=== PATIENT | female | born 1995 | race Caucasian/White ===

== ENCOUNTER 2016-10-29 21:15 | Emergency (ER) | payer OTHER ==
--- NOTE | 2016-10-30 00:08 | DIAGNOSTIC IMAGING REPORT ---
PROCEDURE: CT CERVICAL SPINE W/O CONTRAST INDICATION: TRAUMA/INJURY TECHNIQUE: Noncontrast axial images with sagittal and coronal reformations. COMPARISON: None. FINDINGS: Mild dextroscoliosis with straightening of the cervical lordosis. Osseous structures and disc spaces are normal. No evidence of an acute process or fracture. Alignment is normal. IMPRESSION: 1. Mild dextroscoliosis with straightening of the cervical lordosis may be positional or secondary to cervical spasm. 2. Otherwise negative CT cervical spine. No evidence of fracture. 3. Findings called to the emergency department for Dr. Henry Espinoza. All CT scans at this facility use dose modulation, iterative reconstruction, and/or weight-based dosing when appropriate to reduce radiation dose to as low as reasonably achievable.
--- NOTE | 2016-10-30 00:09 | DIAGNOSTIC IMAGING REPORT ---
PROCEDURE: CT HEAD WITHOUT CONTRAST INDICATION: Syncope. Possible seizure. TECHNIQUE: Noncontrast axial images with sagittal and coronal reformations. COMPARISON: None. FINDINGS: Brain and ventricles are normal. No evidence of an acute process or hemorrhage. Sinuses and mastoids are normal. IMPRESSION: 1. Negative head CT. 2. Findings called to emergency department for Dr. Henry Espinoza (23[address] All [address] scans at this facility use dose modulation, iterative reconstruction, and/or weight-based dosing when appropriate to reduce radiation dose to as low as reasonably achievable.
--- NOTE | 2016-10-30 00:24 | ED NURSING NOTES ---
Clinical Report - Nurses [facility] [address] [place] [address] 10/29/2016 21:15 Patient: DMITRY CAMERON TRIAGE Triage time 21:20. Chief Complaint: FALL and LACERATION. --21:32 Sugey Anand R.N. 21:20 10/29/16. BP: 112/68. HR: 101. RR: 18. O2 saturation: 100%. Temp: 98.2 F. Pain level now: 08/24. --21:32 Sugey Anand R.N. Weight: 77.1 kg stated. Height/Length: 67 inches Per Patient. BMI: 26.6. --21:27 Sugey Anand R.N. Medications Tramadol HCL Oral 100 mg, q 3 hours. --21:24 Sugey Anand R.N. Ambien Oral. --21:30 Sugey Anand R.N. Zantac Oral, daily. --21:30 Sugey Anand R.N. Depo-Provera Intramuscular. --21:30 Sugey Anand R.N. Allergies Lyrica. --21:24 Sugey Anand R.N. Cymbalta. --21:25 Sugey Anand R.N. History Arrived from home. Primary physician (lu). Location of injuries: right pentecostalism. This occurred just prior to arrival. 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 PAST MEDICAL HX: Tetanus status: unknown. Last normal menstrual period unknown. Uses depo injections. SOCIAL HX: Never smoker. No alcohol use or drug use. --21:32 Sugey Anand R.N. PROBLEMS: Fibromyalgia. --21:25 Sugey Anand R.N. ADDITIONAL SURGERIES: Tonsillectomy. --21:25 Sugey Anand R.N. Interventions ID band on patient. --21:32 Sugey Anand R.N. 21:28 10/29/2016 Site #1 started prior to arrival by EMS via IV in the right antecubital space with an 18g angiocath. Saline lock flushed with 10 mL saline. --21:28 Sugey Anand R.N. PHYSICAL ASSESSMENT To room via stretcher. GENERAL / NEURO / PSYCH: Alert. Appears in no acute distress. The patient is disoriented to person, place and time. HEENT: Head: laceration present in the right temporal area. RESPIRATORY: Respirations not labored. CVS: Capillary refill less than 2 seconds. --21:33 Sugey Anand R.N. NURSING PROGRESS NOTES Two patient identifiers checked. Call light placed in reach. Side rails up x 2. Family at bedside. --21:34 Sugey Anand R.N. Patient ready for evaluation- chart flagged. --21:34 Sugey Anand R.N. 8 fr in/out catheterization. During procedure hand hygiene observed and sterile equipment and aseptic technique used. Return of yellow-colored clear urine. She tolerated procedure well. Patient ID band checked for patient name and birthdate: patient confirmed. Catheterized urine collected with return of yellow-colored clear urine; sample sent to lab for urinalysis. Specimen labeled in the presence of the patient. --22:35 Sugey Anand R.N. Patient transported to [place] by stretcher with tech. --22:58 Sugey Anand R.N. 23:14 10/29/16. BP: 115/70 (regular adult cuff) taken on the left arm, while lying. HR: 80. O2 saturation: 100% on room air. --23:17 Priya Purvis 23:18 10/29/16. BP: 123/73 (regular adult cuff) taken on the left arm, while sitting. HR: 94. O2 saturation: 100% on room air. --23:19 Priya Purvis 23:19 10/29/16. BP: 102/73 (regular adult cuff) taken on the left arm, while standing. HR: 120. O2 saturation: 100% on room air. --23:20 Priya Purvis 23:24 10/29/2016 Started bag #1 1000 mL IV Fluids IV NS (Saline); bolus of 500 mL then at 1000 mL/hr via site #1 via IV pump. Allergies verified and confirmed 5 rights. IV patency established. IV site checked: no pain, redness, or swelling. IV flushed thoroughly pre- and post-medication administration. --23:25 Sugey Anand R.N. WOUND REPAIR: Wound repair performed by ED physician. Assisted by a nurse. The wound is located on the forehead. The wound is 3 cm. Preparation: suture tray set-up with 2% lidocaine with epi; Betadine. Wound cleansed per physician with Betadine. Procedure: wound repaired with sutures. Post-procedure: she was stable, no complications, bleeding controlled, dressing applied and wound care instructions given. Estimated blood loss: 0. Total time of assist / procedure: 15 minutes. --00:25 Sugey Anand R.N. 23:55 10/29/2016 IV Fluids IV NS via IV site #1 Rate Changed: bag #1 decreased to 125 mL/hr via IV pump. IV patency established. IV site checked: no pain, redness, or swelling. IV flushed thoroughly. (500 bolus complete). --01:31 Sugey Anand R.N. 01:23 10/30/2016 IV Fluids IV NS Discontinued: bag #1 STOPPED upon discharge. Total amount infused: 750 mL. IV patency established. IV site checked: no pain, redness, or swelling. IV flushed thoroughly. --01:32 Sugey Anand R.N. DISPOSITION / DISCHARGE Departure time: 0123. Condition at departure: stable. No learning barriers present. Discharge instructions provided and reviewed with the patient and family. Work note given. Patient and family verbalized understanding. Written instructions provided in Uzbek. The patient was discharged home and accompanied by family. She left the Emergency Department ambulatory and via private vehicle. Family member driving. --01:43 Sugey Anand R.N. 01:38 10/30/16. BP: 102/55. HR: 92. RR: 18. O2 saturation: 100% on room air. Temp: deferred. Pain level now: 210. --01:43 Sugey Anand R.N. 01:23 10/30/2016 Site #1 removed upon discharge. Catheter intact. Manual pressure and bandage applied. --01:44 Sugey Anand R.N. Locked/Released at 10/30/2016 1:50 by Sugey Anand R.N.
--- NOTE | 2016-10-30 00:24 | ED NURSING NOTES ---
Clinical Report - Nurses [facility] [address] [place] [address] 10/29/2016 21:15 Patient: DMITRY CAMERON TRIAGE Triage time 21:20. Chief Complaint: FALL and LACERATION. --21:32 Sugey Anand R.N. 21:20 10/29/16. BP: 112/68. HR: 101. RR: 18. O2 saturation: 100%. Temp: 98.2 F. Pain level now: 08/24. --21:32 Sugey Anand R.N. Weight: 77.1 kg stated. Height/Length: 67 inches Per Patient. BMI: 26.6. --21:27 Sugey Anand R.N. Medications Tramadol HCL Oral 100 mg, q 3 hours. --21:24 Sugey Anand R.N. Ambien Oral. --21:30 Sugey Anand R.N. Zantac Oral, daily. --21:30 Sugey Anand R.N. Depo-Provera Intramuscular. --21:30 Sugey Anand R.N. Allergies Lyrica. --21:24 Sugey Anand R.N. Cymbalta. --21:25 Sugey Anand R.N. History Arrived from home. Primary physician (lu). Location of injuries: right baptism. This occurred just prior to arrival. 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 PAST MEDICAL HX: Tetanus status: unknown. Last normal menstrual period unknown. Uses depo injections. SOCIAL HX: Never smoker. No alcohol use or drug use. --21:32 Sugey Anand R.N. PROBLEMS: Fibromyalgia. --21:25 Sugey Anand R.N. ADDITIONAL SURGERIES: Tonsillectomy. --21:25 Sugey Anand R.N. Interventions ID band on patient. --21:32 Sugey Anand R.N. 21:28 10/29/2016 Site #1 started prior to arrival by EMS via IV in the right antecubital space with an 18g angiocath. Saline lock flushed with 10 mL saline. --21:28 Sugey Anand R.N. PHYSICAL ASSESSMENT To room via stretcher. GENERAL / NEURO / PSYCH: Alert. Appears in no acute distress. The patient is disoriented to person, place and time. HEENT: Head: laceration present in the right temporal area. RESPIRATORY: Respirations not labored. CVS: Capillary refill less than 2 seconds. --21:33 Sugey Anand R.N. NURSING PROGRESS NOTES Two patient identifiers checked. Call light placed in reach. Side rails up x 2. Family at bedside. --21:34 Sugey Anand R.N. Patient ready for evaluation- chart flagged. --21:34 Sugey Anand R.N. 8 fr in/out catheterization. During procedure hand hygiene observed and sterile equipment and aseptic technique used. Return of yellow-colored clear urine. She tolerated procedure well. Patient ID band checked for patient name and birthdate: patient confirmed. Catheterized urine collected with return of yellow-colored clear urine; sample sent to lab for urinalysis. Specimen labeled in the presence of the patient. --22:35 Sugey Anand R.N. Patient transported to [place] by stretcher with tech. --22:58 Sugey Anand R.N. 23:14 10/29/16. BP: 115/70 (regular adult cuff) taken on the left arm, while lying. HR: 80. O2 saturation: 100% on room air. --23:17 Priya Purvis 23:18 10/29/16. BP: 123/73 (regular adult cuff) taken on the left arm, while sitting. HR: 94. O2 saturation: 100% on room air. --23:19 Priya Purvis 23:19 10/29/16. BP: 102/73 (regular adult cuff) taken on the left arm, while standing. HR: 120. O2 saturation: 100% on room air. --23:20 Priya Purvis 23:24 10/29/2016 Started bag #1 1000 mL IV Fluids IV NS (Saline); bolus of 500 mL then at 1000 mL/hr via site #1 via IV pump. Allergies verified and confirmed 5 rights. IV patency established. IV site checked: no pain, redness, or swelling. IV flushed thoroughly pre- and post-medication administration. --23:25 Sugey Anand R.N. WOUND REPAIR: Wound repair performed by ED physician. Assisted by a nurse. The wound is located on the forehead. The wound is 3 cm. Preparation: suture tray set-up with 2% lidocaine with epi; Betadine. Wound cleansed per physician with Betadine. Procedure: wound repaired with sutures. Post-procedure: she was stable, no complications, bleeding controlled, dressing applied and wound care instructions given. Estimated blood loss: 0. Total time of assist / procedure: 15 minutes. --00:25 Sugey Anand R.N. 23:55 10/29/2016 IV Fluids IV NS via IV site #1 Rate Changed: bag #1 decreased to 125 mL/hr via IV pump. IV patency established. IV site checked: no pain, redness, or swelling. IV flushed thoroughly. (500 bolus complete). --01:31 Sugey Anand R.N. 01:23 10/30/2016 IV Fluids IV NS Discontinued: bag #1 STOPPED upon discharge. Total amount infused: 750 mL. IV patency established. IV site checked: no pain, redness, or swelling. IV flushed thoroughly. --01:32 Sugey Anand R.N. DISPOSITION / DISCHARGE Departure time: 0123. Condition at departure: stable. No learning barriers present. Discharge instructions provided and reviewed with the patient and family. Work note given. Patient and family verbalized understanding. Written instructions provided in Dominican. The patient was discharged home and accompanied by family. She left the Emergency Department ambulatory and via private vehicle. Family member driving. --01:43 Sugey Anand R.N. 01:38 10/30/16. BP: 102/55. HR: 92. RR: 18. O2 saturation: 100% on room air. Temp: deferred. Pain level now: 210. --01:43 Sugey Anand R.N. 01:23 10/30/2016 Site #1 removed upon discharge. Catheter intact. Manual pressure and bandage applied. --01:44 Sugey Anand R.N. Locked/Released at 10/30/2016 1:50 by Sugey Anand R.N.
--- NOTE | 2016-10-30 00:24 | ED CLINICAL REPORT ---
Clinical Report - Physicians/Mid Levels [facility] [address] [place] [place] [address] 10/29/2016 21:15 Patient: DMITRY CAMERON Time Seen: 21:44. Arrived- By private vehicle. Historian- patient. HISTORY OF PRESENT ILLNESS Is no longer unconscious. She has recovered. Chief Complaint: SINGLE SYNCOPAL EPISODE. This occurred today. It was abrupt in onset. Event was not witnessed. The patient lost consciousness and collapsed. No incontinence. No preceding symptoms of light-headedness, nausea, dim vision, chest pain or warmth. No preceding symptoms of abdominal pain. Had a single episode. The episode was brief. Location of injuries- face. Currently she feels normal. (she says that she used more of her tramadol than she is supposed to today). REVIEW OF SYSTEMS No chills, fever, sweats, calf pain or chest pain. No cough, difficulty breathing, pedal edema, palpitations or abdominal pain. No constipation, diarrhea, nausea, vomiting or urinary problems. All systems otherwise negative, except as recorded above. SOCIAL HISTORY Never smoker. No alcohol use or drug use. FAMILY HISTORY Denies family medical history. ADDITIONAL NOTES The nursing notes have been reviewed. PHYSICAL EXAM Vital Signs: 10/29/2016 21:20 BP: 112/68. HR: 101. RR: 18. O2 saturation: 100%. Temp: 98.2 F. Pain level now: 08/24. Have been reviewed. Appearance: Alert. No acute distress. Eyes: Pupils equal, round and reactive to light. No nystagmus. ENT: Normal ENT inspection. Dry mucous membranes present. Neck: Normal inspection. Neck supple. No meningeal signs or carotid bruit. CVS: Normal heart rate and rhythm. Heart sounds normal. Respiratory: No respiratory distress. Breath sounds normal. Abdomen: Soft and nontender. No organomegaly. Back: Normal inspection. Skin: Skin warm and dry. Normal skin color. Normal skin turgor. Extremities: Extremities exhibit normal ROM. No calf tenderness. No lower extremity edema. Neuro: Alert. Oriented X 3. Speech normal. Cranial nerves normal (as tested). No cerebellar findings. No motor deficit. No sensory deficit. LABS, X-RAYS, AND EKG CT C-Spine: No acute disease. CT Head: No acute changes. The study was interpreted by the radiologist and contemporaneously by me. Laboratory Tests: UA-Culture if indicated: (LUZ ELENA: 10/29/2016 22:27) ( [facility] 10/29/2016 22:48) Final results Test Result Flag Units (Reference) URINE COLOR YELLOW URINE APPEARANCE CLEAR URINE GLUCOSE NEGATIVE (NEGATIVE) URINE BILIRUBIN NEGATIVE (NEGATIVE) URINE KETONE NEGATIVE (NEGATIVE) URINE SPECIFIC GRAVITY >= 1.030 (1.010-1.030) URINE PH 6.0 (5.0-8.0) URINE PROTEIN TRACE (NEGATIVE) URINE UROBILINOGEN 0.2 EU/dL (0.2-1.0) URINE NITRITE NEGATIVE (NEGATIVE) URINE BLOOD NEGATIVE (NEGATIVE) URINE LEUK ESTERASE NEGATIVE (NEGATIVE) URINE RBC 0-1 rbc/hpf (0-1) URINE WBC 0-1 wbc/hpf (0-1) URINE EPITHELIAL CELLS 0-1 EPI/hpf (0-5) URINE BACTERIA TRACE (<1+) (NONE SEEN) URINE COMMENT CULT NOT INDICATED URINE CULTURES ARE SET-UP BASED ON THE FOLLOWING CRITERIA:POSITIVE NITRITEPOSITIVE LEUKOCYTE ESTERASEGREATER THAN 10 WHITE BLOOD CELLSMODERATE (2+) OR GREATER BACTERIA Urine: (LUZ ELENA: 10/29/2016 22:27) ( [facility] [place] 10/29/2016 22:42) Final results Test Result Flag Units (Reference) URINE NEGATIVE CBC w Diff: (LUZ ELENA: 10/29/2016 21:25) ( [facility] [place] 10/29/2016 22:05) Final results Test Result Flag Units (Reference) WHITE BLOOD COUNT 6.7 K/uL (4.5-11.5) RED BLOOD COUNT 4.27 M/uL (4.00-5.20) HEMOGLOBIN 12.5 gm/dL (12.0-16.0) HEMATOCRIT 37.9 % (36.0-46.0) MEAN CELL VOLUME 89 fL (80-100) MEAN CORPUSCULAR HGB 29 pg (26-34) MEAN CORPUSCULAR HGB CONC 33 g/dL (31-37) RED CELL DISTRIBUTION WIDTH 13.7 % (11.6-14.8) PLATELET COUNT 286 K/uL (150-400) NEUTROPHIL % 43.7 L % (50-75) LYMPH % 43.4 H % (25-40) MONO % 8.4 % (3-14) EOSINOPHIL % 3.6 % (0-4) BASOPHIL % 0.9 % (0-2) Urine Drug Screen: (LUZ ELENA: 10/29/2016 22:27) ( [facility] [place] 10/29/2016 22:58) Final results Test Result Flag Units (Reference) AMPHETAMINE/METHAMPHETAMINE NEGATIVE (NEGATIVE) BARBITURATE NEGATIVE (NEGATIVE) BENZODIAZEPINE NEGATIVE (NEGATIVE) CANNABINOID NEGATIVE (NEGATIVE) COCAINE NEGATIVE (NEGATIVE) ECSTASY NEGATIVE (NEGATIVE) METHADONE NEGATIVE (NEGATIVE) OPIATE POSITIVE H (NEGATIVE) The urine drug screen is a qualitative screening test fordrug overdose and abuse. All screen results should beconsidered as presumptive.Drugs screened for are as follows:BenzodiazepinesCocaineAmphetamines/MetamphetaminesTHC (Tetrahydrocannabinol)OpiatesBarbituratesEcstasyMethadonePositive results are unconfirmed. For confirmation, notifythe lab for the specimen to be sent to the reference lab.All confirmations must be performed by a differentmethodology.The ingestion of natural herbal and plant productscontaining Ephedra/Ephedra metabolites can produce in urineone or more substances capable of cross reacting withamphetamine/methamphetamine immunoassays. These testsprovide a preliminary result only. A more specificalternative chemical method must be used to obtain aconfirmed analytical result. Magnesium: (LUZ ELENA: 10/29/2016 21:25) ( [facility] [place] 10/29/2016 22:21) Final results Test Result Flag Units (Reference) MAGNESIUM 2.2 mg/dL (1.8-2.4) CMP: (LUZ ELENA: 10/29/2016 21:25) ( MsgRcvd 10/29/2016 22:14) Final results Test Result Flag Units (Reference) GLUCOSE 105 mg/dL (70-110) BUN 7 mg/dL (7-18) CREATININE 1.1 mg/dL (0.6-1.3) Estimated GFR >60 mL/min Estimated GFR- >60 mL/min Note: Persistent reduction over 3 months in eGFR<60 mL/min/1.73 m2 defines CKD. Patients with eGFR values>=60 mL/min/1.73 m2 may also have CKD if evidence ofpersistent proteinuria. Additional information may be foundat www.kidney.org. SODIUM 142 mmol/L (136-145) POTASSIUM 3.6 mmol/L (3.5-5.1) CHLORIDE 108 H mmol/L (98-107) CARBON DIOXIDE 21 mmol/L (21-32) CALCIUM 8.9 mg/dL (8.5-10.1) TOTAL PROTEIN 7.3 g/dL (6.4-8.2) ALBUMIN 3.7 g/dL (3.3-5.0) BILIRUBIN, TOTAL 0.2 mg/dL (0.0-1.0) ALKALINE PHOSPHATASE 71 U/L (46-116) AST (SGOT) 18 U/L (15-37) ALT (SGPT) 21 U/L (12-78) LIPASE 70 L U/L (73-393) AMYLASE 62 U/L (25-115) . PROGRESS AND PROCEDURES Laceration Repair: Location: forehead. Time-out completed immediately before the procedure. Length: 3 cm. Complexity: simple (local anesthesia used and sutured). Wound depth/shape- linear. Anesthesia provided using 2% lidocaine with epi. Prepped with Betadine. Wound explored, cleansed and examined to the base in bloodless field. Closure of skin: 5-0 Prolene (7 sutures). Post-procedure: she is stable and there are no complications. Bleeding is controlled. Dressing applied. Tetanus immunization up-to-date. Course of Care: Patient is stable. Patient/family counseled. Old medical records ordered. Disposition: Discharged. Condition: stable. CLINICAL IMPRESSION Syncope(due to overuse of tramadol and postural hypotension). Hypotension. Minor head injury. Deep laceration to right eyebrow. INSTRUCTIONS No driving or operating machinery while taking medication. Drink plenty of fluids. (take your medications only as prescribed as discussed. Do not take any more Tramadol or Ambien for the next 24 hours.). Warnings: Further evaluation is necessary. GENERAL WARNINGS: Return or contact your physician immediately if your condition worsens or changes unexpectedly, if not improving as expected, or if other problems arise. Your Current Medications: STOP TAKING THE FOLLOWING MEDICATIONS: Ambien Oral. Tramadol HCL Oral : 100 mg q 3 hours. CONTINUE TAKING THE FOLLOWING MEDICATIONS: Depo-Provera Intramuscular. Zantac Oral : daily. Follow-up: Follow up with your doctor in five days for suture removal. Call for an appointment. Understanding of the discharge instructions verbalized by patient and parent. (Electronically signed by Henry Espinoza MD 11/02/2016 8:11)
--- NOTE | 2016-10-30 00:24 | ED ORDER SUMMARY ---
..... Patient: DMITRY CAMERON OrderSheet [facility] VisitID: [id number] [place] [address] 21y, F Registration Date/Time: 10/29/2016 ORDER SHEET Weight: 77.1 kg (stated) Allergies: Lyrica, Cymbalta GENERAL ORDERS: CBC w Diff Urgent (21:55 10/29/2016 Michael HERNANDEZ) (Ack 22:00 LMuller) (22:01 LMuller) CMP Urgent (21:55 10/29/2016 Michael HERNANDEZ) (Ack 22:00 LMuller) (22:01 LMuller) UA-Culture if indicated Urgent (21:10/29/2016 Michael HERNANDEZ) (Ack 22:00 LMuller) (22:35 CBradburn R.N.) Amylase Urgent (21:10/29/2016 Michael HERNANDEZ) (Ack 22:00 LMuller) (22:01 LMuller) Lipase Urgent (21:55 10/29/2016 Michael HERNANDEZ) (Ack 22:00 LMuller) (22:01 LMuller) Magnesium Urgent (22:02 10/29/2016 Michael HERNANDEZ) (Ack 22:03 LMuller) (22:16 CBradburn R.N.) Urine Urgent (22:02 10/29/2016 Michael HERNANDEZ) (Ack 22:03 LMuller) (22:35 CBradburn R.N.) Urine Drug Screen Urgent (22:02 10/29/2016 Michael HERNANDEZ) (Ack 22:03 LMuller) (22:35 CBradburn R.N.) Seizure Precautions (22:02 10/29/2016 Michael HERNANDEZ) (22:14 CBradburn R.N.) CT Head wo Cont Urgent (22:36 10/29/2016 Michael HERNANDEZ) (Ack 22:40 LMuller) (22:58 CBradburn R.N.) CT Cervical Spine wo Cont Urgent (22:36 10/29/2016 Michael HERNANDEZ) (Ack 22:40 LMuller) (22:58 CBradburn R.N.) Vitals - Orthostatic (22:38 10/29/2016 Michael HERNANDEZ) (Ack 23:16 Nancy R.N.) (23:23 Nancy R.N.) MEDICATION ORDERS: IV FLUIDS: IV Saline Lock (22:02 10/29/2016 Michael HERNANDEZ) (Ack 22:14 Nancy R.N.) IV NS : initial bolus 500 mL (1000 mL/hr), then 125 mL/hr for 4h (NOW); Urgent (22:35 10/29/2016 Michael HERNANDEZ) (Ack 22:39 Nancy R.N.) (23:25 Nancy R.N.) ORDER SHEET NOTES: [Electronically signed by Sugey Anand R.N. (01:50 10/30/2016)] [Electronically signed by Henry Espinoza MD (08:11 11/02/2016)] [Electronically locked/signed by Sugey Anand R.N. (01:50 10/30/2016)]
--- NOTE | 2016-10-30 00:24 | ED ORDER SUMMARY ---
..... Patient: DMITRY CAMERON OrderSheet [facility] VisitID: [id number] [place] [address] 21y, F Registration Date/Time: 10/29/2016 ORDER SHEET Weight: 77.1 kg (stated) Allergies: Lyrica, Cymbalta GENERAL ORDERS: CBC w Diff Urgent (21:55 10/29/2016 Michael HERNANDEZ) (Ack 22:00 LMuller) (22:01 LMuller) CMP Urgent (21:55 10/29/2016 Michael HERNANDEZ) (Ack 22:00 LMuller) (22:01 LMuller) UA-Culture if indicated Urgent (21:10/29/2016 Michael HERNANDEZ) (Ack 22:00 LMuller) (22:35 CBradburn R.N.) Amylase Urgent (21:10/29/2016 Michael HERNANDEZ) (Ack 22:00 LMuller) (22:01 LMuller) Lipase Urgent (21:55 10/29/2016 Michael HERNANDEZ) (Ack 22:00 LMuller) (22:01 LMuller) Magnesium Urgent (22:02 10/29/2016 Michael HERNANDEZ) (Ack 22:03 LMuller) (22:16 CBradburn R.N.) Urine Urgent (22:02 10/29/2016 Michael HERNANDEZ) (Ack 22:03 LMuller) (22:35 CBradburn R.N.) Urine Drug Screen Urgent (22:02 10/29/2016 Michael HERNANDEZ) (Ack 22:03 LMuller) (22:35 CBradburn R.N.) Seizure Precautions (22:02 10/29/2016 Michael HERNANDEZ) (22:14 CBradburn R.N.) CT Head wo Cont Urgent (22:36 10/29/2016 Michael HERNANDEZ) (Ack 22:40 LMuller) (22:58 CBradburn R.N.) CT Cervical Spine wo Cont Urgent (22:36 10/29/2016 Michael HERNANDEZ) (Ack 22:40 LMuller) (22:58 CBradburn R.N.) Vitals - Orthostatic (22:38 10/29/2016 Michael HERNANDEZ) (Ack 23:16 Nancy R.N.) (23:23 Nancy R.N.) MEDICATION ORDERS: IV FLUIDS: IV Saline Lock (22:02 10/29/2016 Michael HERNANDEZ) (Ack 22:14 Nancy R.N.) IV NS : initial bolus 500 mL (1000 mL/hr), then 125 mL/hr for 4h (NOW); Urgent (22:35 10/29/2016 Michael HERNANDEZ) (Ack 22:39 Nancy R.N.) (23:25 Nancy R.N.) ORDER SHEET NOTES: [Electronically signed by Sugey Anand R.N. (01:50 10/30/2016)] [Electronically signed by Henry Espinoza MD (08:11 11/02/2016)] [Electronically locked/signed by Sugey Anand R.N. (01:50 10/30/2016)]
--- NOTE | 2016-11-02 08:11 | ED MAR SUMMARY ---
..... Medication Administration Record [facility] [address] [place] [address] Patient: DMITRY CAMERON Visit ID: [id number] 21y, F Weight: 77.1 kg Height/Length: 67 in BMI: 26.6 ALLERGIES: Cymbalta, Lyrica Start 23:24 10/29/2016 Sugey Anand R.N., Stop 01:23 10/30/2016 Sugey Anand R.N. Medication Administered: IV NS (SALINE), Dose: IV Fluids, Rate: 1000 mL/hr, Bolus: 500 mL, Dispensed: 1000 mL bag, Site: #1 right AC. Medication Ordered: IV NS : initial bolus 500 mL (1000 mL/hr), then 125 mL/hr for 4h (NOW); Urgent.
--- NOTE | 2016-11-02 08:11 | ED DISCHARGE INSTRUCTIONS ---
Patient: DMITRY CAMERON General Instructions [facility] VisitID: [id number] [place] [address] 21y, F Registration Date/Time: 10/29/2016 Syncope(due to overuse of tramadol and postural hypotension). Hypotension. Minor head injury. Deep laceration to right eyebrow. INSTRUCTIONS No driving or operating machinery while taking medication. Drink plenty of fluids. (take your medications only as prescribed as discussed. Do not take any more Tramadol or Ambien for the next 24 hours.). Warnings: Further evaluation is necessary. GENERAL WARNINGS: Return or contact your physician immediately if your condition worsens or changes unexpectedly, if not improving as expected, or if other problems arise. Your Current Medications: STOP TAKING THE FOLLOWING MEDICATIONS: Ambien Oral. Tramadol HCL Oral : 100 mg q 3 hours. CONTINUE TAKING THE FOLLOWING MEDICATIONS: Depo-Provera Intramuscular. Zantac Oral : daily. Follow-up: Follow up with your doctor in five days for suture removal. Call for an appointment. Understanding of the discharge instructions verbalized by patient and parent. ADDITIONAL INFORMATION Fainting:Uncertain Cause Fainting (syncope) is a temporary loss of consciousness ("passing out"). It occurs when blood flow to the brain is reduced. Near-fainting ("near-syncope") is very similar to fainting, but you do not fully "pass out". The common minor causes of fainting include: sudden fear, pain, nausea, emotional stress and overexertion. Suddenly standing up after sitting or lying for a long time can also cause fainting. The more serious causes for fainting are due to either a very slow or very fast or very slow heart beat ("arrhythmia"), other types of heart disease, dehydration, blood loss, seizure, stroke or ruptured blood vessel in the brain. Taking too much high blood pressure medicine can also cause low blood pressure and fainting. The exact cause of your episode is not certain. However, the tests today did not show any of the serious causes of fainting. Sometimes further testing is needed to find out if a serious problem exists. Therefore, it is important that you follow-up with your doctor as advised. Home Care: 1) Rest today. You may resume your normal activities when you are feeling back to normal. It is best to remain with someone who can check on you for the next 24 hours to watch for another episode of fainting. 2) If you become light-headed or dizzy, lie down immediately or sit with your head between your knees. 3) Because we do not know the exact cause of your near fainting spell, it is possible for another spell to occur without warning. Therefore, do not drive a car or operate dangerous equipment, do not take a bath alone (use a shower instead) and do not swim alone until your doctor says that you are no longer in danger of having another fainting spell. Follow Up with your doctor as advised. Get Prompt Medical Attention if any of the following occur: -- Another fainting spell occurs, which is not explained by the common causes listed above -- Chest, arm, neck, jaw, back or abdominal pain -- Shortness of breath -- Severe headache or seizure -- Blood in vomit, stools (black or red color) -- Unexpected vaginal bleeding -- Palpitations (very rapid or very slow or irregular heart beat) -- Signs of stroke: Weakness of an arm or leg or one side of the face Difficulty with speech or vision Extreme drowsiness, confusion, dizziness or fainting Orthostatic Hypotension The normal blood pressure range is between 90/60and 140/80. Low blood pressure (also calledhypotension) is a decrease in blood pressure from what is normal for you. Orthostatic hypotensionis a type of low blood pressure that occurs only when changing body position from lying to standing. It can cause symptoms of dizziness, lightheadedness or fainting. Some of the causesof orthostatic hypotension are: Certain medicines, including: High blood pressure medicines Diuretics (water pills) Some heart medicines Some antidepressants Pain, anxiety, sedative, and sleeping medicines Dehydration (from vomiting, diarrhea, or poor fluid intake) Severe infection, high fever Blood loss (for example, bleeding from the stomach or intestines) Treatment will depend on the cause of your low blood pressure. Home Care: Rest until symptoms improve. Change positions slowly from lying to standing.When getting out of bed, sit on the side of the bed with your legs down for at least 30 seconds before standing. This gives your body time to adjust to the position change. Follow the treatment plan described by your physician. Follow Up with your doctor or as advised by our staff. Get Prompt Medical Attention if any of the following occur: Dizziness, lightheadedness or fainting Black or red color in your stools or vomit Persistent diarrhea or vomiting Inability to eat or drink Fever of 100.4F (38C) or higher, or as directed by your healthcare provider Urinary burning or foul-smelling urine Head Injury With Wake-Up (Adult) You have had a head injury. It does not appear serious at this time. Symptoms of a more serious problem (concussion, bruising, or bleeding in the brain) may appear later. Therefore, watch for the WARNING SIGNS listed below. Home Care: During the next 24 hours someone must stay with you. This person should wake you every 2 hours to check for the signs below. If you have swelling of the face or scalp, apply an ice pack (ice cubes in a plastic bag, wrapped in a towel) for 20 minutes every 1-2 hours until the swelling starts to go down. Do not use aspirin or ibuprofen (Motrin, Advil) after a head injury. You may use acetaminophen (Tylenol) to control pain, unless another pain medicine was prescribed. [NOTE: If you have chronic liver or kidney disease or ever had a stomach ulcer or GI bleeding, talk with your doctor before using these medicines.] For the next 24 hours: Do not take alcohol, sedatives, or medicines that make you sleepy. Do not drive or operate machinery. Avoid strenuous activities. No lifting or straining. If you have had any symptoms of a concussion today (nausea, vomiting, dizziness, confusion, headache, memory loss, or you were knocked out), do not return to sports or any activity that could result in another head injury until all symptoms are gone and you have been cleared by your doctor. A second head injury before fully recovering from the first one can lead to serious brain injury. Follow Up with your doctor if symptoms are not improving after 24 hours, or as directed. [NOTE: A radiologist will review any X-rays or CT scans that were taken. We will notify you of any new findings that may affect your care.] Get Prompt Medical Attention if any of the following WARNING SIGNS occur: Repeated vomiting Severe or worsening headache or dizziness Unusual drowsiness, or unable to awaken as usual Confusion or change in behavior or speech, memory loss, blurred vision Convulsion (seizure) Increasing scalp or face swelling Redness, warmth or pus from the swollen area Fluid drainage or bleeding from the nose or ears Laceration, Face (Suture Or Tape) Alaceration is a cut through the skin. This will require stitches if it is deep. Minor cuts may be treated with surgical tape. Home care The following guidelines will help you care for your laceration at home: If a bandage was applied and it becomes wet or dirty, replace it. Otherwise, leave it in place for the first 24 hours, then change it once a day or as directed. If sutures were used, clean the wound daily: After removing the bandage, wash the area with soap and water. Use a wet cotton swab to loosen and remove any blood or crust that forms. After cleaning, keep the wound clean and dry. Talk with your doctor before applying any antibiotic ointment to the wound. Reapply a fresh bandage. You may remove the bandage to shower as usual after the first 24 hours, but do not soak the area in water (no swimming) until the sutures are removed. If surgical tape was used, keep the area clean and dry. If it becomes wet, blot it dry with a towel. The doctor may prescribe an antibiotic cream or ointment to prevent infection. Do not stop taking this medication until you have have finished the prescribed course or the doctor tells you to stop. The doctor may also prescribe medications for pain. Follow the doctor's instructions for taking these medications.If you have chronic liver or kidney disease or ever had a stomach ulcer or GI bleeding, talk with your doctor before using these medicines. Follow-up care Follow up with your health care provider. Most facial cuts heal in five days with no problem. However, even with proper treatment, a wound infection sometimes occurs. Therefore, check the wound daily for the warning signs listed below. Stitches should not be left in the face for more thanfivedays; otherwise, permanent stitch guerrier may form. If surgical tape closures were used, you may remove them yourself afterfivedays, if they have not fallen off by then. When to seek medical care Get prompt medical attention if any of these occur: Increasing pain in the wound Redness, swelling, or pus coming from the wound If sutures come apart or fall out before 5 days If the surgical tape closures fall off before 5 days, or the wound edges reopen Fever of 100.4F (38C) or higher, or as directed by your health care provider Bleeding not controlled by direct pressure Laceration: Will There Be A Scar? A laceration is a cut through one or more layers of the skin. The goal of emergency treatment is to clean the wound and close it to prevent infection, control bleeding and speed healing. Cuts heal because the body is able to repair the skin by "sealing" the edges together with collagen, a kind of "skin cement." How deep your cut is, its location on your body, your age and the way your skin heals all determine how visible the final scar will be. Some persons tend to heal with more scar tissue than others. This cut will probably heal similar to other cuts you have had in the past. What You Can Do: There are a few simple things that you can do to limit the amount of scar that forms: 1) PREVENT INFECTION: An infected wound makes a bigger scar. Keep the wound clean and dry. Change the dressing and apply any ointment/cream as directed. 2) MASSAGE THE WOUND:After the stitches have been removed: Use a moisturizing cream or lotion containing Aloe or Vitamin E Oil and gently massage the skin around the wound with your fingertips (wash your hands first!). Do this twice a day for the first two weeks, then once a day for a month. This will increase the flow of oxygen and blood to the wound and prevent excess scar tissue from building up. 3) AVOID SUN EXPOSURE: During the first six months, avoid sun exposure since the scar may honeycutt a much darker color than the skin around it. When in the sun, use SPF #50 (or greater) sun block on the scar, or cover the area with a hat or clothing. What To Expect: -- The cut will be sealed within 2 days and will be strong within 5-10 days. However, it will take at least SIX MONTHS for it to be fully healed. -- During the FIRST THREE MONTHS, you may notice the scar line getting more red or purple in color. The scar may become raised. The skin around the wound may feel thick and lumpy. -- During the FOURTH TO SIXTH MONTHS, this process begins to reverse. The red and purple color will fade, the scar line flattens, and the skin around it feels more normal. -- In most cases, the way the scar line looks after six months is the way it will remain, although there may be some continued improvement up to one year after the injury. Is There Anything Else That Can Be Done? If you do not like the way the scar looks after six months, a plastic surgeon may be able to perform a "scar revision." If you have any questions or problems as your wound heals, contact your doctor or this facility. We will be glad to assist you. You have been given the following additional information: Syncope, Unk Cause Hypotension, Orthostatic HEAD INJURY with Wake-Up (Adult) Laceration, Face (Suture Or Tape) Laceration, How To Minimize Scar No driving or operating machinery while taking medication. (Electronically signed by Henry Espinoza MD 11/02/2016 8:11)
--- NOTE | 2016-11-02 08:11 | ED MED RECONCILIATION SUMMARY ---
Patient: DMITRY CAMERON Medication Reconciliation Report [facility] VisitID: [id number] [address] [place] [address] 21y, F Registration Date/Time: 10/29/2016 Weight: 77.1 kg Height/Length: 67 in. BMI: 26.6 ALLERGIES: Cymbalta, Lyrica The patient's Home Medications are listed below: STOP TAKING THE FOLLOWING MEDICATIONS: Ambien Oral Tramadol HCL Oral 100 mg, q 3 hours CONTINUE TAKING THE FOLLOWING MEDICATIONS: Depo-Provera Intramuscular Zantac Oral, daily The source(s) of the original Home Medication information: Not obtained. The following Medications were given to the patient in the Emergency Department: IV NS IV Fluids bolus 500 mL, then 1000 mL/hr, administered: 10/29/2016 11:24:00 PM The following Medications were prescribed to the patient: None.
--- NOTE | 2016-11-02 08:11 | ED MAR SUMMARY ---
..... Medication Administration Record [facility] [address] [place] [address] Patient: DMITRY CAMERON Visit ID: [id number] 21y, F Weight: 77.1 kg Height/Length: 67 in BMI: 26.6 ALLERGIES: Cymbalta, Lyrica Start 23:24 10/29/2016 Sugey Anand R.N., Stop 01:23 10/30/2016 Sugey Anand R.N. Medication Administered: IV NS (SALINE), Dose: IV Fluids, Rate: 1000 mL/hr, Bolus: 500 mL, Dispensed: 1000 mL bag, Site: #1 right AC. Medication Ordered: IV NS : initial bolus 500 mL (1000 mL/hr), then 125 mL/hr for 4h (NOW); Urgent.
--- NOTE | 2016-11-02 08:11 | ED MED RECONCILIATION SUMMARY ---
Patient: DMITRY CAMERON Medication Reconciliation Report [facility] VisitID: [id number] [address] [place] [address] 21y, F Registration Date/Time: 10/29/2016 Weight: 77.1 kg Height/Length: 67 in. BMI: 26.6 ALLERGIES: Cymbalta, Lyrica The patient's Home Medications are listed below: STOP TAKING THE FOLLOWING MEDICATIONS: Ambien Oral Tramadol HCL Oral 100 mg, q 3 hours CONTINUE TAKING THE FOLLOWING MEDICATIONS: Depo-Provera Intramuscular Zantac Oral, daily The source(s) of the original Home Medication information: Not obtained. The following Medications were given to the patient in the Emergency Department: IV NS IV Fluids bolus 500 mL, then 1000 mL/hr, administered: 10/29/2016 11:24:00 PM The following Medications were prescribed to the patient: None.
== END 2016-10-30 01:23 | disposition home or self-care (01) ==
LOC: ED SRH 21:15
DX: T40.4X1A Poisoning by other synthetic narcotics, accidental (unintentional), initial encounter (principal); R55 Syncope and collapse; S06.9X9A Unspecified intracranial injury with loss of consciousness of unspecified duration, initial encounter; S01.111A Laceration without foreign body of right eyelid and periocular area, initial encounter; I95.9 Hypotension, unspecified; W19.XXXA Unspecified fall, initial encounter; Y92.009 Unspecified place in unspecified non-institutional (private) residence as the place of occurrence of the external cause; Z79.899 Other long term (current) drug therapy; Z88.8 Allergy status to other drugs, medicaments and biological substances
CPT/HCPCS: 81460; 90004; 90100; 92235; 92530; 92720; 92760; 92761; 92762; 92763; 92764; 92765; 92766; 92767; 93070; 95059